=== PATIENT | female | born 1975 | race Caucasian/White ===

== ENCOUNTER → 2019-08-31 | Outpatient (CLI) | payer OTHER ==
[~2019-08-31] MED LIST: ADVAIR HFA115 MCG/21 INH; ALTACE2.5 MG PO; CARVEDILOL6.25 MG PO; HYDROCODONE-AP1 EAC6 PO; LANOXIN 0.120.125 M1 PO; MIDOL CAPLET1 EACH PO; REGLAN 10 MG TA10 MG PO; SINGULAIR 10 MG10 M1 PO; TRIPLE ANTIBIOT30 G2 TP; ZOLOFT25 MG PO
== END ==
LOC: SJCVCIMAG 08:29
PROVIDERS: ATTEND Internal Medicine
DX: I08.1 Rheumatic disorders of both mitral and tricuspid valves (principal); E78.2 Mixed hyperlipidemia; I44.2 Atrioventricular block, complete; Z95.0 Presence of cardiac pacemaker; I42.9 Cardiomyopathy, unspecified; I50.42 Chronic combined systolic (congestive) and diastolic (congestive) heart failure; F17.200 Nicotine dependence, unspecified, uncomplicated; Z79.899 Other long term (current) drug therapy